=== PATIENT | female | born 1990 | race Caucasian/White ===

== ENCOUNTER 2019-07-07 08:09 | Emergency (ER) | payer MEDICAID ==
[~2019-07-07] VITALS: Ht 160 cm; Wt 69.1 kg
[~2019-07-07 08:09] MED LIST: DSS100 PO; IBUP-2071 PO; PREN1TAB80 PO
[2019-07-07] MEDS ORDERED: KETOROLAC TROMETHAMINE 30 MG/ML VIAL IM ONE (08:30)
[2019-07-07] MEDS ORDERED: ONDANSETRON HCL 4 MG/2 ML VIAL IM ONE (08:30)
[2019-07-07 10:26] VITALS: BP 115/75
== END 2019-07-07 10:27 | disposition home or self-care (01) ==
LOC: EMS 08:10
DX: R51 Headache (principal); R11.0 Nausea
CPT/HCPCS: 96372; 99283; J1885; J2405

== ENCOUNTER 2021-07-09 15:49 | Emergency (ER) | payer MEDICAID ==
[~2021-07-09] VITALS: Ht 167.6 cm; Wt 77.3 kg
[~2021-07-09 15:49] MED LIST changes: -PREN1TAB80 PO
[2021-07-09] MEDS ORDERED: DiphenhydrAMINE HCL 25 MG CAPSULE PO ONE (19:45)
[2021-07-09] MEDS ORDERED: ACETAMINOPHEN 500 MG TABLET PO ONE (19:45)
[2021-07-09] MEDS ORDERED: METOCLOPRAMIDE HCL 10 MG TABLET PO ONE (19:45)
[2021-07-09] MEDS ORDERED: KETOROLAC TROMETHAMINE 30 MG/ML VIAL IM ONE (20:30)
[2021-07-09] MEDS ORDERED: DEXAMETHASONE SOD PHOS 4 MG/ML 5 ML VIAL IM ONE (20:30)
[2021-07-09] MEDS ORDERED: SODIUM CHLORIDE 0.9% 1,000 ML IV ONE (20:45)
[2021-07-09] MEDS ORDERED: KETOROLAC TROMETHAMINE 30 MG/ML VIAL IVP ONE (22:15)
[2021-07-09] MEDS ORDERED: DEXAMETHASONE SOD PHOS 4 MG/ML 5 ML VIAL IVP ONE (22:15)
[2021-07-09 23:30] VITALS: BP 135/76
== END 2021-07-10 | disposition home or self-care (01) ==
LOC: EMS 15:56
DX: R51.9 Headache, unspecified (principal)
CPT/HCPCS: 81025; 96361; 96374; 96375; 99284; J1100; J1885; J7030